=== PATIENT | female | born 1955 | race Caucasian/White ===

== ENCOUNTER 2020-09-17 19:25 | Emergency (ER) | payer MEDICARE, OTHER ==
[~2020-09-17] VITALS: Ht 160 cm; Wt 59.9 kg
[~2020-09-17 19:25] MED LIST: BIOT1TAB2 PO; BUPR150T73 PO; CYAN100063 PO; FEXO180T72 PO; FLUT1DIS3 INH; LANS30CA60 PO; MULT-6 PO; OMEP-110 PO; PIRB14AE3 INH; RIZA5TAB2 PO
[2020-09-17 19:53] VITALS: BP 145/74
[2020-09-17] MEDS ORDERED: DIPH,PERTUSS(ACELL),TET VAC/PF 0.5 ML IM-VACC ONE ×2 (19:59→20:00)
[2020-09-17] MEDS ORDERED: L.E.T SOLUTION TP ONE (20:00)
[2020-09-17] MEDS ORDERED: PLEASE ENTER HEIGHT AND WEIGHT MC SCH (20:30)
== END 2020-09-17 20:55 | disposition home or self-care (01) ==
LOC: ED 20:53
DX: S51.812A Laceration without foreign body of left forearm, initial encounter (principal); W01.0XXA Fall on same level from slipping, tripping and stumbling without subsequent striking against object, initial encounter; Y93.89 Activity, other specified; Y92.009 Unspecified place in unspecified non-institutional (private) residence as the place of occurrence of the external cause; Y99.8 Other external cause status
CPT/HCPCS: 12002; 90471; 90715; 99283